=== PATIENT | male | born 1980 | race Caucasian/White ===

== ENCOUNTER 2017-02-15 16:00 | Emergency (ER) | payer SELFPAY ==
[2017-02-15 16:11] VITALS: BP 112/68
[2017-02-15] MEDS ORDERED: ONDANSETRON 4 MG TAB.RAPDIS PO ONE (16:12)
[2017-02-15] MEDS ORDERED: DIPHENHYDRAMINE HCL 25 MG CAPSULE PO ONE (16:12)
[2017-02-15] MEDS ORDERED: IBUPROFEN 800 MG TABLET PO ONE (16:12)
--- NOTE | 2017-02-15 16:14 | ER Document Report ---
ED Medical Screen (RME) - General Stated Complaint: HEADACHE Mode of Arrival: Ambulatory Information source: Patient Notes: Patient presents to the emergency department with headache on and off for the past week. Reports he is not taking anything for the headache. Denies head injury. Reports vomited prior to arrival. I have greeted and performed a rapid initial assessment of this patient. A comprehensive ED assessment and evaluation of the patient, analysis of test results and completion of the medical decision making process will be conducted by additional ED providers. Physical Exam - Vital signs Vitals: Temp Pulse Resp BP Pulse Ox 97.5 F 83 18 112/68 100 02/15/17 16:10 02/15/17 16:10 02/15/17 16:10 02/15/17 16:10 02/15/17 16:10 Course - Vital Signs Vital signs: Temp Pulse Resp BP Pulse Ox 97.5 F 83 18 112/68 100 02/15/17 16:10 02/15/17 16:10 02/15/17 16:10 02/15/17 16:10 02/15/17 16:10
--- NOTE | 2017-02-15 17:34 | ER Document Report ---
ED Headache - General Time seen by provider: 18:10 Mode of Arrival: Ambulatory Information source: Patient TRAVEL OUTSIDE OF THE [place] IN LAST 30 DAYS: No - HPI Patient complains to provider of: Headache, Facial pain Onset: Other - see HPI note Similar symptoms previously: No Recently seen / treated by doctor: No - General Chief Complaint: Headache Stated Complaint: HEADACHE Notes: Patient is a 37 year old male presenting to the ED for headache. Patient states his headache has been present for the past few days. Patient states his headache is waxing and waning. Patient denies any injury or trauma to his head. Patient states his pain is throbbing and he has pain to his forehead and the back of his head. Patient denies any weakness in his arms or legs. Patient has no known allergies. (NIKUNJ LEON) - Related Data Allergies/Adverse Reactions: No Known Allergies Allergy (Unverified 02/15/17 16:14) Past Medical History - General Information source: Patient - Social History Smoking Status: Never Smoker Cigarette use (# per day): No Chew tobacco use (# tins/day): No Frequency of alcohol use: Occasional Drug Abuse: None Family History: None Patient has suicidal ideation: No Patient has homicidal ideation: No - Medical History Medical History: Negative Surgical Hx: Negative Review of Systems - Review of Systems Constitutional: No symptoms reported EENT: No symptoms reported Cardiovascular: No symptoms reported Respiratory: No symptoms reported Gastrointestinal: No symptoms reported Genitourinary: No symptoms reported Male Genitourinary: No symptoms reported Musculoskeletal: No symptoms reported Skin: No symptoms reported Hematologic/Lymphatic: No symptoms reported Neurological/Psychological: See HPI, Headaches -: Yes All other systems reviewed and negative Physical Exam - Vital signs Interpretation: Normal - General General appearance: Appears well, Alert In distress: Mild - HEENT Head: Normocephalic, Atraumatic Eyes: Normal Pupils: PERRL Mucous membranes: Moist - Respiratory Respiratory status: No respiratory distress Chest status: Nontender Breath sounds: Normal Chest palpation: Normal - Cardiovascular Rhythm: Regular Heart sounds: Normal auscultation Murmur: No - Abdominal Inspection: Normal Distension: No distension Bowel sounds: Normal Tenderness: Nontender Organomegaly: No organomegaly - Back Back: Normal, Nontender - Extremities General upper extremity: Normal inspection, Nontender, Normal color, Normal ROM , Normal temperature General lower extremity: Normal inspection, Nontender, Normal color, Normal ROM , Normal temperature, Normal weight bearing. No: Opal's sign - Neurological Neuro grossly intact: Yes Cognition: Normal Orientation: AAOx4 Orlando Coma Scale Eye Opening: Spontaneous Jody Coma Scale Verbal: Oriented Orlando Coma Scale Motor: Obeys Commands Jody Coma Scale Total: 15 Speech: Normal - Psychological Associated symptoms: Normal affect, Normal mood - Skin Skin Temperature: Warm Skin Moisture: Dry Discharge - Discharge Clinical Impression: Headache Condition: Stable Disposition: HOME, SELF-CARE Additional Instructions: Headache The physician does not feel that the headache you are experiencing has a serious underlying cause. Most headaches are due to emotional stress, with resultant muscle tension (tension headache). Occasionally, headaches are secondary to changes in the blood vessels of the scalp (vascular headache and migraine headache). Sometimes, a headache is the first symptom of another developing illness, such as a viral infection. You have no evidence of stroke, bleeding, meningitis, or other serious cause of your headache. The treatment of headaches varies with the severity and cause of the pain. Not all headaches need pain shots. In fact, there is evidence that using narcotics for headaches may make them worse in the long run. The physician will determine the therapy that's in your best interest. If you develop a fever, if the headache is different from any you've previously experienced, or if the headache progressively worsens, then call your physician at once or go to the emergency room. Referrals: [facility] [Provider Group] - Follow up in 3-5 days (Call for an appointment to be seen in 3-4 days return for increasing worsening or new symptoms) Scribe Documentation - Scribe Written by Caron:: Nikunj Leon 02/15/17 21:00 acting as scribe for :: Abel
== END 2017-02-15 21:01 | disposition home or self-care (01) ==
LOC: ER 16:00
DX: R51 Headache (principal)
CPT/HCPCS: 99284; 70450; S0119

== ENCOUNTER 2019-11-21 16:53 | Emergency (ER) | payer SELFPAY ==
--- NOTE | 2019-11-21 18:49 | EKG REPORT ---
SEVERITY:- ABNORMAL ECG - SINUS TACHYCARDIA BIATRIAL ABNORMALITIES CONSIDER RIGHT VENTRICULAR HYPERTROPHY : Confirmed by: Murphy Johnson MD 21-Nov-2019 18:49:44
--- NOTE | 2019-11-21 19:17 | ER Document Report ---
ED Medical Screen (RME) - General Chief Complaint: Chest Pain Stated Complaint: CHEST PAIN, HEART RACING Time Seen by Provider: 11/21/19 19:10 Mode of Arrival: Ambulatory Information source: Patient Notes: 39-year-old male presents emergency department complaints of chest pain for the past 3 days. Denies fever vomiting cough diarrhea. Reports he drinks 2 energy drinks a week. Denies history of cardiac disease. Also reports he has swelling under his chin. Reports it just started today. Appears to be a lipoma. No erythema no warmth no pustule no fluctuance. He reports it hurts when he shaves. He reports it had a little bit of bump for past 5 months but today it swelled up. Patient is opening his mouth wide clear voice no difficulty swallowing. I have greeted and performed a rapid initial assessment of this patient. A comprehensive ED assessment and evaluation of the patient, analysis of test results and completion of the medical decision making process will be conducted by additional ED providers. TRAVEL OUTSIDE OF THE [place] IN LAST 30 DAYS: No - Related Data Allergies/Adverse Reactions: No Known Allergies Allergy (Verified 11/21/19 19:01) Past Medical History Renal/ Medical History: Denies: Hx Peritoneal Dialysis - Immunizations Hx Diphtheria, Pertussis, Tetanus Vaccination: Yes Physical Exam - Vital signs Vitals: Temp Pulse Resp BP Pulse Ox 98.7 F 107 H 16 122/87 H 100 11/21/19 17:44 11/21/19 17:44 11/21/19 17:44 11/21/19 17:44 11/21/19 17:44 Course - Vital Signs Vital signs: Temp Pulse Resp BP Pulse Ox 98.7 F 107 H 16 122/87 H 100 11/21/19 17:44 11/21/19 17:44 11/21/19 17:44 11/21/19 17:44 11/21/19 17:44
[2019-11-21 20:14] LABS: ABSOLUTE BASOPHILS # (AUTO) 0.1 10^3/uL (0.0-0.2); ABSOLUTE MONOCYTES (AUTO) 0.8 10^3/uL (0.1-1.4); BASOPHILS % (AUTO) 0.5 % (0-2); EOSINOPHILS % (AUTO) 0.1 % (0-6); HEMATOCRIT 46.8 % (37.9-51.0); LYMPHOCYTES % (AUTO) 25.3 % (13-45); MEAN CORPUSCULAR HGB CONC 34.2 g/dL (32.0-36.0); MEAN CORPUSCULAR VOLUME 88 fl (80-97); MONOCYTES % (AUTO) 6.5 % (3-13); PLATELET COUNT 228 10^3/uL (150-450); RED BLOOD COUNT 5.33 10^6/uL (4.35-5.55); RED CELL DISTRIBUTION WIDTH 13.2 % (11.5-14.0); SEGMENTED NEUTROPHILS % (AUTO) 67.6 % (42-78); TOTAL CELLS COUNTED % (AUTO) 100 %; WHITE BLOOD COUNT 11.9 10^3/uL (4.0-10.5)
--- NOTE | 2019-11-21 20:26 | RADIOLOGY REPORT (SQ) ---
EXAM DESCRIPTION: [facility]: XR CHEST 2 VIEWS Views: 2 CLINICAL HISTORY: 39 years Male, cp COMPARISON: None. FINDINGS: The lungs are clear. No pneumothorax or significant pleural effusion. Cardiomediastinal silhouette is within normal limits. Slight dextrocurvature of the lower thoracic spine may be positional. There are no acute bone findings. IMPRESSION: 1. No acute cardiothoracic abnormality.
--- NOTE | 2019-11-21 20:36 | RADIOLOGY REPORT (SQ) ---
EXAM DESCRIPTION: US HEAD NECK SOFT TISSUE COMPLETED DATE/TME: 11/21/2019 19:14 CLINICAL HISTORY: 39 years, Male, ? lipoma vs abscess COMPARISON: None. TECHNIQUE: Axial 2-D grayscale images of the neck were acquired. Doppler was utilized. LIMITATIONS: None. FINDINGS: Focused sonographic evaluation of the left semitubular area was performed at the site of the patient's palpable abnormality. Visualized is a heterogeneously echogenic solid mass located about the left submandibular area measuring 2.4 x 1.0 x 2.3 cm in size. This is nonspecific on this sonographic examination. IMPRESSION: Nonspecific solid mass located about the left submandibular region. Recommend correlation with contrast enhanced CT of the neck. copyright 2010 [employer]- All Rights Reserved
[2019-11-21 20:45] LABS: ALKALINE PHOSPHATASE 80 U/L (38-126); ANION GAP 16 (5-19); ASPARTATE AMINO TRANSFERASE 25 U/L (17-59); BILIRUBIN,DIRECT 0.2 mg/dL (0.0-0.4); BILIRUBIN,TOTAL 0.6 mg/dL (0.2-1.3); BLOOD UREA NITROGEN 19 mg/dL (7-20); CALCIUM 10.4 mg/dL (8.4-10.2); CARBON DIOXIDE 25 mmol/L (22-30); CHLORIDE 99 mmol/L (98-107); GLUCOSE 90 mg/dL (75-110); POTASSIUM 3.8 mmol/L (3.6-5.0); TOTAL PROTEIN 8.4 g/dL (6.3-8.2)
[2019-11-21 21:07] LABS: APPEARANCE,URINE SLIGHTLY-CLOUDY; BILIRUBIN,URINE NEGATIVE (NEGATIVE); COLOR,URINE AMBER; GLUCOSE, URINE NEGATIVE (NEGATIVE); KETONES,URINE 80 mg/dL (NEGATIVE); LEUKOCYTE ESTERASE,URINE NEGATIVE (NEGATIVE); NITRITE,URINE NEGATIVE (NEGATIVE); PROTEIN,URINE 30 mg/dL (NEGATIVE); URINE SPECIFIC GRAVITY 1.031
[2019-11-21 23:09] LABS: URINE AMPHETAMINES SCREEN NEGATIVE; URINE BARBITURATES SCREEN NEGATIVE; URINE BENZODIAZEPINES SCREEN NEGATIVE; URINE COCAINE SCREEN NEGATIVE; URINE MARIJUANA (THC) SCREEN NEGATIVE; URINE METHADONE SCREEN NEGATIVE; URINE PHENCYCLIDINE SCREEN NEGATIVE
[2019-11-21] MEDS ORDERED: NORMAL SALINE 1000 ML 1,000 ML IV ONE (23:34)
--- NOTE | 2019-11-21 23:35 | ER Document Report ---
ED General - General Chief Complaint: Chest Pain Stated Complaint: CHEST PAIN, HEART RACING Time Seen by Provider: 11/21/19 19:10 Primary Care Provider: [facility] [Provider Group] - Follow up as needed [facility] [Provider Group] - Follow up as needed [facility] [Provider Group] - Follow up as needed [facility] [Provider Group] - Follow up in 3-5 days [facility] [Provider Group] - Follow up as needed Mode of Arrival: Ambulatory Information source: Patient Notes: 39-year-old male presented to ED for complaint of chest pain for the last 3 days. He denies any fevers cough congestion diarrhea. He states he has been drinking energy drinks couple times a week. He has no history of any cardiac disease. He also has swelling under his right chin. He states there was a little small area and then grew over the last couple days. He states the little bumps been there for about 5 months but grew over the last day. States it hurts when he shaves. Patient is alert oriented respirations regular nonlabored speaking in full sentences does not have any difficulty speaking or swallowing. Patient had blood work completed before I saw him EKG was normal blood work was within normal limits urine he was mildly dehydrated he did was given a liter of fluids. Screen was negative. Cardiac enzymes were negative. Chest x-ray was negative. TRAVEL OUTSIDE OF THE [place] IN LAST 30 DAYS: No - HPI Onset: Other - This pain was for the last 3 days Onset/Duration: Gradual, Waxing and waning Quality of pain: Sharp Severity: Moderate Pain Level: 2 Associated symptoms: Chest pain, Other - Face mass to the right submandibular area. denies: Nonproductive cough, Productive cough, Diarrhea, Fever, Hoarseness, Nausea, Vomiting, Rhinnorhea, Sinus pain/drainage, Shortness of breath, Slow to respond, Sore throat, Sweating Relieved by: Denies Similar symptoms previously: Yes Recently seen / treated by doctor: No - Related Data Allergies/Adverse Reactions: No Known Allergies Allergy (Verified 11/21/19 19:01) Past Medical History - General Information source: Patient - Social History Smoking Status: Current Every Day Smoker Cigarette use (# per day): Yes - Half pack a day Smoking Education Provided: Yes - 4 minutes Lives with: Family Family History: None Patient has suicidal ideation: No Patient has homicidal ideation: No - Past Medical History Cardiac Medical History: Reports: None Pulmonary Medical History: Reports: None EENT Medical History: Reports: None Neurological Medical History: Reports: None Endocrine Medical History: Reports: None Renal/ Medical History: Reports: None Malignancy Medical History: Reports None GI Medical History: Reports: None Musculoskeletal Medical History: Reports None Skin Medical History: Reports None Psychiatric Medical History: Reports: None Traumatic Medical History: Reports: None Infectious Medical History: Reports: None Surgical Hx: Negative Past Surgical History: Reports: None - Immunizations Hx Diphtheria, Pertussis, Tetanus Vaccination: Yes Review of Systems - Review of Systems Constitutional: No symptoms reported EENT: Other - Right some mandibular mass Cardiovascular: Chest pain Respiratory: No symptoms reported Gastrointestinal: No symptoms reported Genitourinary: No symptoms reported Male Genitourinary: No symptoms reported Musculoskeletal: No symptoms reported Skin: No symptoms reported Hematologic/Lymphatic: No symptoms reported Neurological/Psychological: No symptoms reported -: Yes All other systems reviewed and negative Physical Exam - Vital signs Vitals: Temp Pulse Resp BP Pulse Ox 98.7 F 107 H 16 122/87 H 100 11/21/19 17:44 11/21/19 17:44 11/21/19 17:44 11/21/19 17:44 11/21/19 17:44 Interpretation: Normal - General General appearance: Appears well, Alert - HEENT Head: Normocephalic, Atraumatic Eyes: Normal Pupils: PERRL Ears: Normal External canal: Normal Tympanic membrane: Normal Sinus: Normal Nasal: Normal Mouth/Lips: Normal Mucous membranes: Normal Pharynx: Normal Neck: Neck mass - Submandibular area. No: Lymphadenopathy - Respiratory Respiratory status: No respiratory distress Chest status: Nontender Breath sounds: Normal Chest palpation: Normal - Cardiovascular Rhythm: Regular Heart sounds: Normal auscultation Murmur: No - Abdominal Inspection: Normal Distension: No distension Bowel sounds: Normal Tenderness: Nontender Organomegaly: No organomegaly - Back Back: Normal, Nontender - Extremities General upper extremity: Normal inspection, Nontender, Normal color, Normal ROM, Normal temperature General lower extremity: Normal inspection, Nontender, Normal color, Normal ROM, Normal temperature, Normal weight bearing. No: Opal's sign - Neurological Neuro grossly intact: Yes Cognition: Normal Orientation: AAOx4 Simpson Coma Scale Eye Opening: Spontaneous Jody Coma Scale Verbal: Oriented Jody Coma Scale Motor: Obeys Commands Simpson Coma Scale Total: 15 Speech: Normal Motor strength normal: LUE, RUE, LLE, RLE Sensory: Normal - Psychological Associated symptoms: Normal affect, Normal mood - Skin Skin Temperature: Warm Skin Moisture: Dry Skin Color: Normal Course - Re-evaluation Re-evalutation: 11/22/19 06:16 Labs x-ray and CT of the neck discussed with patient and written report of labs CTA and x-ray given to patient for follow-up. Patient has been instructed to follow-up with [facility] for the mass to the right submandibular neck. It is a solid mass. Per Dr. Blackwood recommendation the area was cleaned with Betadine and an 18-gauge needle was used to aspirate the area. There was no return of any fluid with aspiration. Patient tolerated the procedure well. P atient verbalized understanding that he needed to follow-up with [facility]. - Vital Signs Vital signs: Temp Pulse Resp BP Pulse Ox 97.8 F 83 17 101/77 99 11/22/19 03:56 11/22/19 03:56 11/22/19 03:56 11/22/19 03:56 11/22/19 03:56 - Laboratory Result Diagrams: 11/21/19 19:25 11/21/19 19:25 Laboratory results interpreted by me: 11/21/19 11/21/19 11/21/19 19:25 19:25 19:25 WBC 11.9 H Calcium 10.4 H Total Protein 8.4 H Urine Protein 30 H Urine Ketones 80 H Urine Urobilinogen 4.0 H - Diagnostic Test Radiology reviewed: Image reviewed, Reports reviewed Discharge - Discharge Clinical Impression: Mass of right submandibular region Chest pain Qualifiers: Chest pain type: unspecified Qualified Code(s): R07.9 - Chest pain, unspecified Condition: Stable Disposition: HOME, SELF-CARE Additional Instructions: CHEST PAIN OF UNCLEAR CAUSE: The exact cause of your chest pain isn't clear. Fortunately, there is no evidence of a dangerous medical condition. Further testing may be required to find the source of the pain. Most often, we find that this pain is coming from the chest wall -- the muscles or rib joints in the chest. But chest pain can come from the lung and lung lining, the esophagus, the heart valves or heart lining, and even the st omach or gallbladder. Rest. Eat lightly until the pain is gone. We may prescribe medicine for pain and inflammation. You should call the physician immediately if the pain radiates to the s houlder, jaw or arms; if you start to run a fever or develop a cough; or if you develop shortness of breath, or other new or alarming symptoms. NORMAL EXAM AND WORKUP: At this time, your examination and workup show no significant abnormality. No significant abnormal physical findings were noted. All laboratory, EKG, and imaging (x-ray, CT scans, ultrasound) studies that were ordered show no significant abnormality. Although your examination and all studies that were ordered showed no significant abnormal finding, there are no examinations and no studies that are 100% accurate. There is always the possibility that some abnormality could exist and not be detected with physical examination or within the limits and capabilities of laboratory and other studies. You should return or follow up as you were instructed on your visit today for further evaluation if your symptoms do not resolve. Your blood work and chest x-rays are normal. Your ultrasound and CT of the mass to your right submandibular area show a mass they did not show an abscess. He states it could be a cyst. You will need to follow-up with a surgeon for further evaluation of this mass. I have given you the name and number of [facility] to follow-up. You also need to follow-up with her primary care doctor concerning your chest pain as I have not found no cause for your chest pain. Your cardiac enzymes and lab work have been negative. FOLLOW-UP CARE: If you have been referred to a physician for follow-up care, call the physicians office for an appointment as you were instructed or within the next two days. If you experience worsening or a significant change in your symptoms, notify the physician immediately or return to the Emergency Department at any time for re-evaluation. Forms: Smoking Cessation Education, Return to Work Referrals: [facility] [Provider Group] - Follow up in 3-5 days [facility] [Provider Group] - Follow up as needed [facility] [Provider Group] - Follow up as needed [facility] [Provider Group] - Follow up as needed [facility] [Provider Group] - Follow up as needed
--- NOTE | 2019-11-22 02:15 | RADIOLOGY REPORT (SQ) ---
EXAM DESCRIPTION: CT NECK WITH IV CONTRAST COMPLETED DATE/TME: 11/22/2019 00:00 CLINICAL HISTORY: 39 years, Male, SUBMANDIBULAR SOLID MASS COMPARISON: Ultrasound dated 11/21/2019 TECHNIQUE: Axial CT images of the neck were obtained after the administration of IV contrast. Sagittal and coronal reformats were performed. DLP 321 Images stored on PACS. All CT scanners at this facility use dose modulation, iterative reconstruction, and/or weight based dosing when appropriate to reduce radiation dose to as low as reasonably achievable (ALARA). [facility]: Dose Right [facility]: CareDose [facility]: Dose Right [facility]: Teradose 4D [facility]: TheReadingRoom LIMITATIONS: None. FINDINGS: There is a 2.6 x 2.0 x 0.8 cm (AP X TV X CC) mass along the right submandibular region which measures approximately 5 Hounsfield units(axial image 45/127). No definite surrounding inflammatory changes. No abnormal masses detected along the left submandibular region. The bilateral submandibular glands appear normal. The parotid glands and thyroid gland appear unremarkable. No cervical lymphadenopathy. The palatine tonsils are unremarkable. The epiglottis is normal. The prevertebral soft tissues are normal. Vascular enhancement is normal. There are no lytic or blastic bone lesions. The visualized lung apices are clear. The visualized intracranial structures are unremarkable. IMPRESSION: Hypodense mass along the right submandibular region, likely representing a cyst. No definite surrounding inflammatory changes. No abnormal masses detected along the left submandibular region. No cervical lymphadenopathy. Normal bilateral submandibular glands. TECHNICAL DOCUMENTATION: Quality ID # [id number]: Final reports with documentation of one or more dose reduction techniques (e.g., Automated exposure control, adjustment of the mA and/or kV according to patient size, use of iterative reconstruction technique) copyright 2010 [employer]- All Rights Reserved
[2019-11-22 03:57] VITALS: BP 101/77
== END 2019-11-22 03:57 | disposition home or self-care (01) ==
LOC: ER 16:53
DX: R07.9 Chest pain, unspecified (principal); R22.1 Localized swelling, mass and lump, neck; E86.0 Dehydration; F17.210 Nicotine dependence, cigarettes, uncomplicated; Z71.6 Tobacco abuse counseling
CPT/HCPCS: 93005; 99406; 99285; 96360; 36415; 85025; 80053; 81001; 84484; 80307; 71046; 76536; 70491; 93010; J7030

== ENCOUNTER 2019-12-26 08:58 | Emergency (ER) | payer SELFPAY ==
--- NOTE | 2019-12-26 09:29 | ER Document Report ---
ED Medical Screen (RME) - General Chief Complaint: Sore Throat Stated Complaint: SORE THROAT, TONGUE Time Seen by Provider: 12/26/19 09:26 Mode of Arrival: Ambulatory Information source: Patient Notes: 39-year-old male presented to ED for complaint of sore tongue for the last 3 days and a possible abscess to his right underneath of his chin for 6 or 7 months that he would like to have removed. It does look like it is a sebaceous Gland that is swollen. He states all of his family runs away from him because he has this knot underneath of his chin. He wants to know what he can do to get rid of it. Patient is alert oriented respirations regular nonlabored speaking in full sentences. I have greeted and performed a rapid initial assessment of this patient. A comprehensive ED assessment and evaluation of the patient, analysis of test results and completion of medical decision making process will be conducted by an additional ED providers. TRAVEL OUTSIDE OF THE [place] IN LAST 30 DAYS: No - Related Data Allergies/Adverse Reactions: No Known Allergies Allergy (Verified 11/21/19 19:01) Past Medical History Renal/ Medical History: Denies: Hx Peritoneal Dialysis - Immunizations Hx Diphtheria, Pertussis, Tetanus Vaccination: Yes Physical Exam - Vital signs Vitals: Temp Pulse Resp BP Pulse Ox 98.0 F 89 18 117/72 99 12/26/19 09:09 12/26/19 09:09 12/26/19 09:09 12/26/19 09:09 12/26/19 09:09 Course - Vital Signs Vital signs: Temp Pulse Resp BP Pulse Ox 98.0 F 89 18 117/72 99 12/26/19 09:09 12/26/19 09:09 12/26/19 09:09 12/26/19 09:09 12/26/19 09:09
[2019-12-26 09:55] LABS: ABSOLUTE LYMPHOCYTES (AUTO) 1.8 10^3/uL (0.5-4.7); ABSOLUTE MONOCYTES (AUTO) 0.5 10^3/uL (0.1-1.4); ABSOLUTE NEUT (AUTO) 6.2 10^3/uL (1.7-8.2); BASOPHILS % (AUTO) 0.4 % (0-2); EOSINOPHILS % (AUTO) 0.3 % (0-6); HEMATOCRIT 45.1 % (37.9-51.0); HEMOGLOBIN 15.5 g/dL (13.5-17.0); MEAN CORPUSCULAR HEMOGLOBIN 30.7 pg (27.0-33.4); MEAN CORPUSCULAR HGB CONC 34.4 g/dL (32.0-36.0); MEAN CORPUSCULAR VOLUME 89 fl (80-97); MONOCYTES % (AUTO) 6.4 % (3-13); PLATELET COUNT 235 10^3/uL (150-450); RED BLOOD COUNT 5.06 10^6/uL (4.35-5.55); RED CELL DISTRIBUTION WIDTH 13.6 % (11.5-14.0); SEGMENTED NEUTROPHILS % (AUTO) 71.9 % (42-78); TOTAL CELLS COUNTED % (AUTO) 100 %; WHITE BLOOD COUNT 8.6 10^3/uL (4.0-10.5)
[2019-12-26 10:19] LABS: ALBUMIN 4.4 g/dL (3.5-5.0); ALKALINE PHOSPHATASE 70 U/L (38-126); ANION GAP 7 (5-19); ASPARTATE AMINO TRANSFERASE 23 U/L (17-59); BILIRUBIN,TOTAL 0.4 mg/dL (0.2-1.3); BLOOD UREA NITROGEN 12 mg/dL (7-20); CALCIUM 9.6 mg/dL (8.4-10.2); CARBON DIOXIDE 30 mmol/L (22-30); CHLORIDE 103 mmol/L (98-107); GLUCOSE 86 mg/dL (75-110); POTASSIUM 4.3 mmol/L (3.6-5.0); TOTAL PROTEIN 7.3 g/dL (6.3-8.2)
--- NOTE | 2019-12-26 11:33 | ER Document Report ---
ED ENT - General Chief Complaint: Abscess Stated Complaint: SORE THROAT, TONGUE Time Seen by Provider: 12/26/19 09:26 Mode of Arrival: Ambulatory Notes: Patient is a 39-year-old male with a past medical history significant for chronic submental cyst formation who presents to the emergency department today with a chief complaint of a sore tongue. Patient reports a couple days ago he was eating some jalapeno spicy chips. He states he had no problems at the time but awoke this morning and was brushing his teeth and tongue when he states his tongue was painful and began to bleed a little bit upon brushing. He denies any chronic medical conditions or immunosuppressive conditions. Denies any sore throat, fever, nausea, vomiting, diarrhea, chills, night sweats, chest pain or shortness of breath. He adds that he would like to have this cystic neck lesion removed here if possible. TRAVEL OUTSIDE OF THE [place] IN LAST 30 DAYS: No - Related Data Allergies/Adverse Reactions: No Known Allergies Allergy (Verified 11/21/19 19:01) Past Medical History - General Information source: Patient - Social History Smoking Status: Unknown if Ever Smoked Family History: None Patient has suicidal ideation: No Patient has homicidal ideation: No Renal/ Medical History: Denies: Hx Peritoneal Dialysis - Immunizations Hx Diphtheria, Pertussis, Tetanus Vaccination: Yes Review of Systems - Review of Systems Constitutional: No symptoms reported EENT: Other - Tongue pain Cardiovascular: No symptoms reported Respiratory: No symptoms reported Skin: Lumps Neurological/Psychological: No symptoms reported Physical Exam - Vital signs Vitals: Temp Pulse Resp BP Pulse Ox 98.0 F 89 18 117/72 99 12/26/19 09:09 12/26/19 09:09 12/26/19 09:09 12/26/19 09:09 12/26/19 09:09 - General General appearance: Appears well In distress: None - HEENT Head: Normocephalic, Atraumatic Eyes: Normal Conjunctiva: Normal Extraocular movements intact: Yes Pupils: PERRL Ears: Normal External canal: Normal Tympanic membrane: Normal Nasal: Normal Mouth/Lips: Normal, Other - Poor dentition Mucous membranes: Moist Pharynx: Normal Neck: Other - Right submental/submandibular cystic-like lesion that is mobile and soft. No redness, nontender, no drainage. No: Lymphadenopathy - Respiratory Respiratory status: No respiratory distress Chest status: Nontender Breath sounds: Normal Chest palpation: Normal - Cardiovascular Rhythm: Regular Heart sounds: Normal auscultation Murmur: No - Neurological Cognition: Normal Orientation: AAOx4 - Psychological Associated symptoms: Normal affect, Normal mood - Skin Skin Temperature: Warm Skin Moisture: Dry Skin Color: Normal Course - Re-evaluation Re-evalutation: 12/26/19 11:32 Patient with a chronic cystic lesion to the right submental/submandibular region. He will be referred to dermatology and ENT for consideration of remova l. No acute process regarding this. Suspect poor dentition leading to gingivitis and glossitis. Patient will be given chlorhexidine mouthwash. Counseled him regarding importance of outpatient follow-up and advised that he return here or any ER immediately with any new, persistent or worsening sy mptoms. He verbalized understood and agreed. - Vital Signs Vital signs: Temp Pulse Resp BP Pulse Ox 98.0 F 89 18 117/72 99 12/26/19 09:09 12/26/19 09:09 12/26/19 09:09 12/26/19 09:09 12/26/19 09:09 - Laboratory Result Diagrams: 12/26/19 09:37 12/26/19 09:37 Discharge - Discharge Clinical Impression: Glossitis Condition: Stable Disposition: HOME, SELF-CARE Instructions: Dentist Additional Instructions: Follow-up with your regular doctor in 2 to 3 days for reevaluation. Return here or any ER immediately with any new, persistent or worsening symptoms. Please call the ENT doctor, and/or the medicaid business analyst for evaluation of your neck lump. Please see your dentist for follow-up regarding your tongue. Prescriptions: Chlorhexidine Gluconate [Peridex] 15 ml MM BID #60 mouthwash
[2019-12-26 12:30] VITALS: BP 120/74
--- NOTE | 2019-12-27 15:20 | ER Document Report ---
Entered by MIKO MONZON SCRIBE 12/26/19 1147 Acting as scribe for:SINDHU DEUTSCH MD ED ENT - General Chief Complaint: Abscess Stated Complaint: SORE THROAT, TONGUE Time Seen by Provider: 12/26/19 09:26 Mode of Arrival: Ambulatory TRAVEL OUTSIDE OF THE [place] IN LAST 30 DAYS: No - Related Data Allergies/Adverse Reactions: No Known Allergies Allergy (Verified 11/21/19 19:01) Past Medical History - General Information source: Patient - Social History Smoking Status: Unknown if Ever Smoked Family History: None Patient has suicidal ideation: No Patient has homicidal ideation: No Renal/ Medical History: Denies: Hx Peritoneal Dialysis - Immunizations Hx Diphtheria, Pertussis, Tetanus Vaccination: Yes Physical Exam - Vital signs Vitals: Temp Pulse Resp BP Pulse Ox 98.0 F 89 18 117/72 99 12/26/19 09:09 12/26/19 09:09 12/26/19 09:09 12/26/19 09:09 12/26/19 09:09 Course - Re-evaluation Re-evalutation: 12/26/19 11:57 Discussed with patient that the CT scan that was done of his neck and chin reports that he had a cyst in the submandibular region of his body on the right side convince patient that there is no evidence for any cancer in the soft tissue. Ultrasound was done as well which also described this as a cyst a benign cyst. - Vital Signs Vital signs: Temp Pulse Resp BP Pulse Ox 98.0 F 89 18 117/72 99 12/26/19 09:09 12/26/19 09:09 12/26/19 09:09 12/26/19 09:09 12/26/19 09:09 - Laboratory Result Diagrams: 12/26/19 09:37 12/26/19 09:37 - Diagnostic Test Radiology results interpreted by me: 12/26/19 11:58 Radiology results from 1231 when patient was in the emergency department for evaluation of the submandibular cyst. Ultrasound and CT scan of area disclosed only a a 3 x 4 cm cyst that was not determined to be any cancerous solid mass. Discharge - Discharge Clinical Impression: Glossitis, Epidermoid cyst Condition: Stable Disposition: HOME, SELF-CARE Instructions: Dentist Additional Instructions: Follow-up with your regular doctor in 2 to 3 days for reevaluation. Return here or any ER immediately with any new, persistent or worsening symptoms. Please call the ENT doctor, and/or the clinical documentation improvement specialist for evaluation of your neck lump. Please see your dentist for follow-up regarding your tongue. Prescriptions: Chlorhexidine Gluconate [Peridex] 15 ml MM BID #60 mouthwash I personally performed the services described in the documentation, reviewed and edited the documentation which was dictated to the scribe in my presence, and it accurately records my words and actions.
== END 2019-12-26 12:34 | disposition home or self-care (01) ==
LOC: ER 08:58
DX: L72.0 Epidermal cyst (principal); K14.0 Glossitis
CPT/HCPCS: 36415; 80053; 85025; 87070; 87077; 87880; 99283

== ENCOUNTER 2020-04-24 09:31 | Emergency (ER) | payer SELFPAY ==
[2020-04-24] MEDS ORDERED: LIDOCAINE 1% INJ-PF (10 MG/ML) 30 ML SDV INJ ONE (11:05)
[2020-04-24] MEDS ORDERED: DIPH/PERTUSS(ACELL)/TETANUS VAC/PF 0.5 ML SYR (>=10YO) IM ONE (11:06)
--- NOTE | 2020-04-24 12:03 | ER Document Report ---
ED General - General Chief Complaint: Laceration Stated Complaint: HAND LACERATION Time Seen by Provider: 04/24/20 10:59 Mode of Arrival: Ambulatory Information source: Patient TRAVEL OUTSIDE OF THE [place] IN LAST 30 DAYS: No - HPI Notes: Patient complains of pain to the left arm. This pain started proximally 2 hours before arrival. He states that he was working on a roof with some relatives when he cut his palm with a piece of metal. He denies any other injuries. The pain is constant. Is worse with movement and better with rest. It does radiate throughout his hand. It is a sharp pain. It is mild to moderate in intensity. He states that his tetanus is not up-to-date. - Related Data Allergies/Adverse Reactions: No Known Allergies Allergy (Verified 11/21/19 19:01) Past Medical History - General Information source: Patient - Social History Smoking Status: Current Every Day Smoker Chew tobacco use (# tins/day): No Frequency of alcohol use: None Drug Abuse: None Family History: None Patient has homicidal ideation: No Renal/ Medical History: Denies: Hx Peritoneal Dialysis - Immunizations Hx Diphtheria, Pertussis, Tetanus Vaccination: Yes Review of Systems - Review of Systems Constitutional: denies: Chills, Fever Cardiovascular: denies: Chest pain, Palpitations Respiratory: denies: Cough, Short of breath -: Yes All other systems reviewed and negative Physical Exam - Vital signs Vitals: Temp 98.2 F 04/24/20 09:37 Interpretation: Normal - General General appearance: Appears well, Alert - HEENT Head: Normocephalic, Atraumatic Eyes: Normal Pupils: PERRL - Respiratory Respiratory status: No respiratory distress Chest status: Nontender Breath sounds: Normal Chest palpation: Normal - Cardiovascular Rhythm: Regular Heart sounds: Normal auscultation Murmur: No - Abdominal Inspection: Normal Distension: No distension Bowel sounds: Normal Tenderness: Nontender Organomegaly: No organomegaly - Back Back: Normal, Nontender - Extremities General upper extremity: Tender - Patient has some tenderness over the area of laceration, Normal color, Normal ROM, Normal temperature, Other - Patient has an approximate 3 cm linear laceration to the distal central palm. General lower extremity: Normal inspection, Nontender, Normal color, Normal ROM, Normal temperature, Normal weight bearing. No: Opal's sign - Neurological Neuro grossly intact: Yes Cognition: Normal Orientation: AAOx4 Jody Coma Scale Eye Opening: Spontaneous Jody Coma Scale Verbal: Oriented [place] Coma Scale Motor: Obeys Commands [place] Coma Scale Total: 15 Speech: Normal Motor strength normal: LUE, RUE, LLE, RLE Sensory: Normal - Psychological Associated symptoms: Normal affect, Normal mood - Skin Skin Temperature: Warm Skin Moisture: Dry Skin Color: Normal Course - Vital Signs Vital signs: Temp Pulse Resp BP Pulse Ox 98.2 F 04/24/20 09:37 Procedures - Laceration/Wound Repair Left Hand Time completed: 12:00 Wound length (cm): 3 Wound's Depth, Shape: Linear Laceration pre-procedure: Sterile drapes applied, Shur-Clens applied Anesthetic type: 1% Lidocaine Volume Anesthetic (mLs): 2 Wound explored: Clean Irrigated w/ Saline (mLs): 300 Wound Repaired With: Sutures Suture Size/Type: 3:0, Nylon Number Deep Layer Sutures: 3 Post-procedure wound care: Sterile dressing applied Post-procedure NV exam normal: Yes Complications: No Discharge - Discharge Clinical Impression: Laceration of left hand Qualifiers: Encounter type: initial encounter Foreign body presence: without foreign body Qualified Code(s): S61.412A - Laceration without foreign body of left hand, initial encounter Condition: Stable Disposition: HOME, SELF-CARE Instructions: Tetanus Immunization Given ([facility]), Laceration Care ([facility]), Prophylactic Antibiotic ([facility]) Additional Instructions: Please have your laceration examined in 10 days for possible suture removal. You may have the sutures removed in the emergency department, urgent care or your primary care physician. Please keep the wound dry for 24 hours. Do not swim or soak the hand under water until the sutures are removed. Prescriptions: Cephalexin Monohydrate [Keflex 500 mg Capsule] 500 mg PO Q6H 5 Days capsule Forms: Return to Work Referrals: [facility] [Provider Group] - Follow up in 1 week
[2020-04-24 12:21] VITALS: BP 93/66
== END 2020-04-24 12:21 | disposition home or self-care (01) ==
LOC: ER 09:31
DX: S61.412A Laceration without foreign body of left hand, initial encounter (principal); W26.8XXA Contact with other sharp object(s), not elsewhere classified, initial encounter; Y93.H3 Activity, building and construction; F17.200 Nicotine dependence, unspecified, uncomplicated; Z23 Encounter for immunization
CPT/HCPCS: 99282; 90471; 90715; J3490

== ENCOUNTER 2020-06-15 13:49 | Emergency (ER) | payer SELFPAY ==
--- NOTE | 2020-06-15 14:28 | ER Document Report ---
ED Medical Screen (RME) - General Chief Complaint: Laceration Stated Complaint: HAND LACERATION Time Seen by Provider: 06/15/20 14:21 Mode of Arrival: Wheelchair Notes: Patient is a 40-year-old male comes emergency room complaining of lacerations to bilateral hands. Patient states he was opening up a jar of cranberry juice and it ruptured 9. He has a laceration on his right hand to involve the thumb pad and the lateral aspect of the little finger side of the palm. He also has a laceration to the left thumb. Patient denies any other injuries at the time. He states that he got up tetanus shot 1 month ago unknown previous laceration that he encountered. Physical examination: Patient appears to be a well-nourished well-developed 40-year-old male who is in no apparent distress but does appear somewhat uncom fortable. Cardiac: Regular rate and rhythm no murmurs. Lungs: Bilateral breath sounds breath sounds increased clear auscultation Abdomen: Bowel sounds present all 4 quads nontender to palpate. Upper extremities. Examination of patient's primary concern is his right hand patient has a laceration on the palmar side of the right thumb can be seen at this time and on the lateral aspect of the hand right side below the little finger. There appears to be a very large and deep gash into that lateral aspect of the hand. Patient appears to be able to open all 5 fingers to full extension and appears to be able to have good flexion. He does have cap refill in all 5 fingers of the right hand. Further evaluation does show a small area of a laceration on the left thumb as well again full range of motion noted at this time. I have greeted and performed a rapid initial assessment of this patient. A comprehensive ED assessment and evaluation of the patient, analysis of test results and completion of the medical decision making process will be conducted by additional ED providers. Dictation of this chart was performed using voice recognition software; therefore, there may be some unintended grammatical errors. TRAVEL OUTSIDE OF THE [place] IN LAST 30 DAYS: No - Related Data Allergies/Adverse Reactions: No Known Allergies Allergy (Verified 06/15/20 14:19) Past Medical History - Social History Chew tobacco use (# tins/day): No Frequency of alcohol use: Social Drug Abuse: Marijuana Renal/ Medical History: Denies: Hx Peritoneal Dialysis - Immunizations Hx Diphtheria, Pertussis, Tetanus Vaccination: Yes Physical Exam - Vital signs Vitals: Temp Pulse Resp BP Pulse Ox 98.6 F 79 18 103/67 100 06/15/20 13:53 06/15/20 13:53 06/15/20 13:53 06/15/20 13:53 06/15/20 13:53 Course - Vital Signs Vital signs: Temp Pulse Resp BP Pulse Ox 98.6 F 79 18 103/67 100 06/15/20 13:53 06/15/20 13:53 06/15/20 13:53 06/15/20 13:53 06/15/20 13:53
--- NOTE | 2020-06-15 14:58 | RADIOLOGY REPORT (SQ) ---
EXAM DESCRIPTION: HAND LEFT 3 VIEWS IMAGES COMPLETED DATE/TIME: 06/15/2020 2:44 pm REASON FOR STUDY: Glass broke in hand COMPARISON: None. EXAM PARAMETERS: NUMBER OF VIEWS: Three views. TECHNIQUE: AP, lateral and oblique radiographic images acquired of the left hand. LIMITATIONS: None. FINDINGS: MINERALIZATION: Normal. BONES: No acute fracture or dislocation. No worrisome bone lesions. JOINTS: No effusions. SOFT TISSUES: No soft tissue swelling. No foreign body. OTHER: No other significant finding. IMPRESSION: NEGATIVE STUDY OF THE LEFT HAND. NO RADIOGRAPHIC EVIDENCE OF ACUTE INJURY. NO RADIOPAQU E FOREIGN BODY. TECHNICAL DOCUMENTATION: JOB ID: [id number] 2010 [employer]- All Rights Reserved Reading location - IP/workstation name: [email or web address]
--- NOTE | 2020-06-15 14:58 | RADIOLOGY REPORT (SQ) ---
EXAM DESCRIPTION: HAND RIGHT 3 VIEWS IMAGES COMPLETED DATE/TIME: 06/15/2020 2:44 pm REASON FOR STUDY: Glass broke in hand COMPARISON: None. EXAM PARAMETERS: NUMBER OF VIEWS: Three views. TECHNIQUE: AP, lateral and oblique radiographic images acquired of the right hand. LIMITATIONS: None. FINDINGS: MINERALIZATION: Normal. BONES: No acute fracture or dislocation. No worrisome bone lesions. JOINTS: No effusions. SOFT TISSUES: Soft tissue injury adjacent to the 5th metacarpal. No foreign body. OTHER: No other significant finding. IMPRESSION: SOFT TISSUE INJURY. NO RADIOPAQUE FOREIGN BODY. NO FRACTURE. TECHNICAL DOCUMENTATION: JOB ID: [id number] 2010 [employer]- All Rights Reserved Reading location - IP/workstation name: [email or web address]
[2020-06-15] MEDS ORDERED: HYDROCODONE/ACETAMINOPHEN 10-325 MG TABLET PO ONE (15:03)
[2020-06-15] MEDS ORDERED: ONDANSETRON 4 MG TAB.RAPDIS PO ONE (15:03)
[2020-06-15] MEDS ORDERED: LIDOCAINE 2% INJ (20 MG/ML) 20 ML MDV INJ ONE (15:04)
[2020-06-15] MEDS ORDERED: LIDOCAINE 1% INJ-PF (10 MG/ML) 30 ML SDV INJ ONE (15:05)
--- NOTE | 2020-06-15 15:08 | ER Document Report ---
ED General - General Chief Complaint: Laceration Stated Complaint: HAND LACERATION Time Seen by Provider: 06/15/20 14:21 Mode of Arrival: Wheelchair Notes: Patient is a 40-year-old male with no reported past medical history presents the emergency department the chief complaint of laceration to the bilateral hands that occurred prior to arrival. The patient was trying to open a glass bottle of cranberry juice when he slapped his hand against a bottle trying to twist the top off and the glass broke shattering causing laceration of the bilateral palmar thumbs and medial right palm. Patient admits to some numbness in the affected digits distally. Denies any decreased range of motion or strength. Denies any uncontrollable bleeding. States his tetanus was updated a couple months ago. TRAVEL OUTSIDE OF THE [place] IN LAST 30 DAYS: No - Related Data Allergies/Adverse Reactions: No Known Allergies Allergy (Verified 06/15/20 14:19) Past Medical History - Social History Smoking Status: Current Every Day Smoker Chew tobacco use (# tins/day): No Frequency of alcohol use: Social Drug Abuse: Marijuana Family History: None Patient has homicidal ideation: No Renal/ Medical History: Denies: Hx Peritoneal Dialysis - Immunizations Hx Diphtheria, Pertussis, Tetanus Vaccination: Yes Review of Systems - Review of Systems Notes: Per HPI otherwise negative Physical Exam - Vital signs Vitals: Temp Pulse Resp BP Pulse Ox 98.6 F 79 18 103/67 100 06/15/20 13:53 06/15/20 13:53 06/15/20 13:53 06/15/20 13:53 06/15/20 13:53 - General General appearance: Appears well, Alert In distress: None - Respiratory Respiratory status: No respiratory distress Chest status: Nontender Breath sounds: Normal Chest palpation: Normal - Cardiovascular Rhythm: Regular Heart sounds: Normal auscultation - Neurological Neuro grossly intact: Yes Cognition: Normal Orientation: AAOx4 - Psychological Associated symptoms: Normal affect, Normal mood - Skin Skin Color: Other - Small 1 cm superficial laceration to the proximal thumb pad palmar surface bilaterally. Well approximated wound edges, do not separate under tension. No foreign body visualized. Good capillary refill distally. Full strength and range of motion with and without resistance distal to the bilateral thumbs. There is also a deeper area of laceration approximately 4 cm in length, 1 cm deep involving the medial right palmar surface proximal to the fifth MCP. Patient is to numbness distally in the small finger. Capillary refill is less than 2 seconds. He appears to have full strength of the fifth digit distal to the deeper laceration with and without resistance. No uncontrollable bleeding. Course - Re-evaluation Re-evalutation: 06/15/20 16:16 Patient is left thumb superficial abrasion/laceration, patient requested no wound repair to that thumb. He had 2 placed in the right palmar thumb and 6 placed superficially to the right medial palmar hand after 1 continuous subcuticular deeper. Patient is neurovascular intact status post with 5 out of 5 strength of all the digits distally. Good capillary refill distally status post. Sterile dressing applied. Patient was placed on a short course of Keflex. His tetanus is up-to-date. We discussed wound care recheck in 2 to 3 days and suture removal in approximately 10 to 14 days. Advised to return here any ER immediately with any new, persistent or worsening symptoms. He verbalized understood and agreed. - Vital Signs Vital signs: Temp Pulse Resp BP Pulse Ox 98.6 F 79 18 103/67 100 06/15/20 13:53 06/15/20 13:53 06/15/20 13:53 06/15/20 13:53 06/15/20 13:53 Procedures - Laceration/Wound Repair Right Hand Time completed: 16:15 Wound length (cm): 5 - Right palm and right thumb Wound's Depth, Shape: Linear, Irregular, Other - Subcutaneous Laceration pre-procedure: Sterile PPE donned, Betadine prep applied, Sterile drapes applied, Shur-Clens applied Anesthetic type: 1% Lidocaine Volume Anesthetic (mLs): 8 Wound explored: Clean Irrigated w/ Saline (mLs): 500 Wound Repaired With: Sutures Suture Size/Type: 5:0, Vicryl, 4:0, Ethilon Number of Sutures: 9 - 1 subcuticular with Vicryl,. 8 Prolene Layer Closure?: Yes Deep Layer Suture Size/Type: 5:0, Other - Vicryl Number Deep Layer Sutures: 1 Post-procedure wound care: Sterile dressing applied Post-procedure NV exam normal: Yes Complications: No Discharge - Discharge Clinical Impression: Hand laceration Qualifiers: Encounter type: initial encounter Foreign body presence: unspecified Laterality: right Qualified Code(s): S61.411A - Laceration without foreign body of right hand, initial encounter Condition: Stable Disposition: HOME, SELF-CARE Instructions: Laceration Care ([facility]), Prophylactic Antibiotic ([facility]) Additional Instructions: Please seek wound recheck in 2 to 3 days for reevaluation. Suture removal in approximately 10 to 14 days. Please return here any ER immediately with any new, persistent or worsening symptoms. Prescriptions: Cephalexin Monohydrate [Keflex 500 mg Capsule] 500 mg PO BID 10 Days #20 capsule
[2020-06-15 16:38] VITALS: BP 102/72
== END 2020-06-15 16:40 | disposition home or self-care (01) ==
LOC: ER 13:49
DX: S61.012A Laceration without foreign body of left thumb without damage to nail, initial encounter (principal); S61.011A Laceration without foreign body of right thumb without damage to nail, initial encounter; S61.411A Laceration without foreign body of right hand, initial encounter; W25.XXXA Contact with sharp glass, initial encounter; Y93.89 Activity, other specified; F17.200 Nicotine dependence, unspecified, uncomplicated; F12.10 Cannabis abuse, uncomplicated; R20.0 Anesthesia of skin
CPT/HCPCS: 99283; 73130 ×2; 12032; S0119